=== PATIENT | male | born 1975 | race Caucasian/White ===

== ENCOUNTER 2021-08-25 22:43 | Observation (INO) ==
[2021-08-25 22:53] VITALS: TEMP 98.8; O2SAT 97
[2021-08-26] MEDS ORDERED: ALPRAZolam 0.5 MG TABLET PO ONE (00:30)
[2021-08-26] MEDS ORDERED: traZODone 50 MG TABLET PO PRN (02:25)
[2021-08-26] MEDS ORDERED: hydrOXYzine pamoate 25 MG CAPSULE PO PRN (02:25)
[2021-08-26] MEDS ORDERED: Haloperidol Lactate 5 MG/ML VIAL IM PRN (02:25)
[2021-08-26] MEDS ORDERED: Ibuprofen 400 MG TABLET PO PRN (02:25)
[2021-08-26] MEDS ORDERED: *HR* LORazepam 1 MG TABLET PO PRN (02:25)
[2021-08-26] MEDS ORDERED: haloperidoL 5 MG TABLET PO PRN (02:25)
[2021-08-26] MEDS ORDERED: *HR* LORazepam 2 MG/ML VIAL IM PRN (02:25)
[2021-08-26 09:20] VITALS: BP 146/98; PULSE 87
[2021-08-26] MEDS ORDERED: *HR* Buprenorphine HCl 8 MG TAB.SUBL SL SCH (10:00)
== END 2021-08-26 11:15 | disposition home or self-care (01) ==
LOC: EMEROOARM 22:43 → INTOOBSV 08-26 02:24 → 1ANU 08-26 02:24
PROVIDERS: ADMIT Psychiatry & Neurology Psychiatry; ATTEND Psychiatry & Neurology Psychiatry